=== PATIENT | female | born 1995 | race Caucasian/White ===

== ENCOUNTER 2017-01-18 15:19 | Emergency (ER) | payer OTHER ==
[~2017-01-18] VITALS: Ht 157.5 cm; Wt 118.8 kg
[2017-01-18 21:23] LABS: HEMATOCRIT 40.8 % (36.0-46.0); MCH 27.6 PG (29.0-34.0); MCHC 33.3 G/DL (30.0-36.0); MCV 82.8 FL (83-99); MEAN PLAT.VOLUME 9.3 uM^3 (9.5-12.4); PLATELET COUNT 318 K/uL (156-360); RBC DIS.WIDTH-CV 12.5 % (11.8-14.6); RBC DIS.WIDTH-SD 38.1 % (39-53); RED BLOOD COUNT 4.93 M/uL (3.80-5.20); WHITE BLOOD COUNT 9.8 K/uL (4.1-10.2)
[2017-01-18 21:29] LABS: CHLORIDE 103 mEq/L (99-109); POTASSIUM 4.1 mEq/L (3.7-5.4); SODIUM 138 mEq/L (136-147)
[2017-01-18 21:30] LABS: ADD MIUA? NO; BILIRUBIN NEGATIVE; BLOOD NEGATIVE; COLOR YELLOW ((YELLOW)); GLUCOSE (STRIP) NEGATIVE; KETONES NEGATIVE; LEUKOCYTES NEGATIVE; NITRITE NEGATIVE; PROTEIN (STRIP) NEGATIVE; UCUL ADDED? NO; UROBILINOGEN 0.2 MG/DL (0.2-1.0)
[2017-01-18 21:32] LABS: GLUCOSE 93 mg/dL (70-99)
[2017-01-18 21:33] LABS: ANION GAP 12 MEQ/L (2-14)
[2017-01-18 21:34] LABS: TOTAL BILIRUBIN 0.7 mg/dL (0.0-1.0)
[2017-01-18 21:35] LABS: ALKALINE PHOSPHATASE 70 IU/L (3-129); GFR ESTIMATE (CALCULATED) > 59 mL/min/
[2017-01-18 21:36] LABS: UREA NITROGEN (BUN) 12 mg/dL (9-23)
[2017-01-18 21:38] LABS: CREATINE KINASE 31 IU/L (1-294)
[2017-01-18 21:50] LABS: QUANTITATIVE HCG < 4.0 MIU/ML
[2017-01-18 22:32] VITALS: BP 131/74
== END 2017-01-18 22:33 | disposition home or self-care (01) ==
LOC: EME 15:19
PROVIDERS: Physician Assistant
DX: R42 Dizziness and giddiness (principal); R51 Headache
CPT/HCPCS: 80053; 81003; 82550; 84702; 85027; 93005; 99281; 99283

== ENCOUNTER 2018-01-21 00:32 | Emergency (ER) | payer OTHER ==
[~2018-01-21] VITALS: Ht 157.5 cm; Wt 119.8 kg
[2018-01-21] MEDS ORDERED: ZANTAC150 MG PO (00:57)
[2018-01-21] MEDS ORDERED: PREDNISONE20 MG PO (00:57)
[2018-01-21] MEDS ORDERED: BENADRYL50 MG PO (00:57)
[2018-01-21 01:12] VITALS: BP 125/73
== END 2018-01-21 01:13 | disposition home or self-care (01) ==
LOC: EME 00:32
DX: L50.9 Urticaria, unspecified (principal)
CPT/HCPCS: 99281; 99283; J7512

== ENCOUNTER 2018-01-23 22:27 | Emergency (ER) | payer OTHER ==
[~2018-01-23] VITALS: Ht 157.5 cm; Wt 120.7 kg
[~2018-01-23 22:27] MED LIST: BENADRYL50 MG PO; PREDNISONE20 MG PO; ZANTAC150 MG PO
[2018-01-23 23:50] VITALS: BP 142/82
== END 2018-01-23 23:50 | disposition home or self-care (01) ==
LOC: EME 22:27 → EXP 22:27
DX: J04.0 Acute laryngitis (principal); J40 Bronchitis, not specified as acute or chronic; B34.9 Viral infection, unspecified; Z88.0 Allergy status to penicillin
CPT/HCPCS: 70360; 71046; 94640; 99281; 99282